=== PATIENT | male | born 1990 | race Two or more races ===

== ENCOUNTER 2017-11-25 16:03 | Emergency (ER) | payer MEDICAID ==
[~2017-11-25] VITALS: Ht 175.3 cm; Wt 99.8 kg
[2017-11-26 00:17] VITALS: BP 111/71
== END 2017-11-26 00:29 | disposition left against medical advice (07) ==
LOC: ER 16:10
DX: R07.89 Other chest pain (principal)
CPT/HCPCS: 36415; 71046; 84484; 93005